=== PATIENT | male | born 1985 | race Caucasian/White ===

== ENCOUNTER 2022-07-06 08:55 | Inpatient (IN) | payer OTHER, SELFPAY ==
[2022-07-06 09:34] LABS: #Monocytes 1.3 10x3/uL (0.0-1.1); #Neutrophils 11.4 10x3/uL (1.5-8.4); %Basophils 0.3 % (0.0-2.0); %Lymphocytes 11.4 % (18.0-47.0); %Monocytes 9.1 % (0.0-10.0); %Neutrophils 78.9 % (40.0-75.0); Hemoglobin 17.8 g/dL (13.5-17.5); Mean Corpuscular HGB CONC 35.3 g/dL (32.0-36.0); Mean Corpuscular Hemoglobin 30.3 pg (27.0-33.0); Mean Corpuscular Volume 85.7 fl (81.2-95.1); Mean Platelet Volume 10.7 fl (7.4-10.4); Platelet Count 654 10x3/uL (150-450); RBC Distribution Width 14.4 % (11.5-14.5); Red Blood Cell (RBC) Count 5.88 10x6/uL (4.32-5.72); White Blood Cell (WBC) Count 14.4 10x3/uL (3.5-10.5)
[2022-07-06 09:58] LABS: ALT (SGPT) 45 U/L (8-55); AST (SGOT) 31 U/L (5-34); Albumin 5.9 g/dL (3.5-5.0); Alkaline Phosphatase 82 U/L (40-110); Anion Gap 25 mmol/L (10-20); BUN (Urea Nitrogen) 31 mg/dL (8.9-20.6); Bilirubin, Total 2.7 mg/dL (0.2-1.2); CK (CPK) 211 U/L (30-200); Calc. Creatinine Clearance 0 mL/min (70-130); Calcium 11.9 mg/dL (7.8-10.44); Carbon Dioxide 19 mmol/L (22-29); Chloride 105 mmol/L (98-107); Estimated GFR 16; Globulin 3.8 g/dL (2.4-3.5); Glucose 145 mg/dL (70-105); Potassium 4.3 mmol/L (3.5-5.1); Protein, Total 9.7 g/dL (6.0-8.3); Sodium 145 mmol/L (136-145)
[2022-07-06 09:59] LABS: Acetaminophen Less than 10.0 mcg/mL (10.0-30.0); Alcohol Less than 10 mg/dL (Less than 10); Salicylate Less than 8.0 mg/dL (15.0-30.0)
[2022-07-06] MEDS ORDERED: Lorazepam 1 MG TAB ONE (10:17)
[2022-07-06 10:33] LABS: CKMB 2.7 ng/mL (0-6.6)
[2022-07-06] MEDS ORDERED: Acetaminophen 650 MG Suppository PR PRN (12:15)
[2022-07-06] MEDS ORDERED: Acetaminophen 325 MG TAB PO PRN (12:15)
[2022-07-06] MEDS ORDERED: Ondansetron PF 4 MG/2 ML Vial IVP PRN (12:15)
[2022-07-06] MEDS ORDERED: Ondansetron ODT 4 MG TAB PO PRN (12:15)
[2022-07-06] MEDS ORDERED: Acetaminophen 500 MG TAB ONE (13:17)
[2022-07-06 14:09] LABS: CKMB 4.9 ng/mL (0-6.6)
[2022-07-06 14:55] LABS: Amphetamine Detected (NotDetected); Barbiturates Screen Not Detected (NotDetected); Benzodiazepine Screen Not Detected (NotDetected); Cocaine Metabolite Screen Not Detected (NotDetected); Methadone Not Detected (NotDetected); Methamphetamine Detected (NotDetected); Opiate Screen Not Detected (NotDetected); Oxycodone Screen Not Detected (NotDetected); Phencyclidine (PCP) Not Detected (NotDetected); THC/Cannabinoid Screen Not Detected (NotDetected); Tricyclic Screen Not Detected (NotDetected)
[2022-07-06 14:57] VITALS: BMI 30.1
[2022-07-06] MEDS: Sodium Chloride 0.9% 1,000 ML IV SCH ×2 (16:32→22:55)
[2022-07-06 16:55] LABS: CKMB 9.3 ng/mL (0-6.6)
[2022-07-06] MEDS: Nicotine 14 MG PATCH TD SCH (19:50)
[2022-07-06] MEDS: clonazePAM 1 MG TAB PO PRN (23:56)
[2022-07-07] MEDS: Sodium Chloride 0.9% 1,000 ML IV SCH ×4 (02:09→22:01)
[2022-07-07 06:32] LABS: Anion Gap 13 mmol/L (10-20); BUN (Urea Nitrogen) 32 mg/dL (8.9-20.6); Calc. Creatinine Clearance 77 mL/min (70-130); Calcium 8.9 mg/dL (7.8-10.44); Carbon Dioxide 22 mmol/L (22-29); Cardiac Risk 3.9 (Less than 4.5); Chloride 110 mmol/L (98-107); Cholesterol 174 mg/dl (< 200 Desired); Estimated GFR 48; Glucose 111 mg/dL (70-105); HDL Cholesterol 45 mg/dL (>60 Neg Risk); LDL Cholesterol, Calculated 115 mg/dL; Potassium 3.9 mmol/L (3.5-5.1); Sodium 141 mmol/L (136-145); Triglycerides 70 mg/dL (Less than 150)
[2022-07-07 06:39] LABS: #Monocytes 0.6 10x3/uL (0.0-1.1); #Neutrophils 4.6 10x3/uL (1.5-8.4); %Basophils 0.4 % (0.0-2.0); %Eosinophils 0.1 % (0.0-6.0); %Lymphocytes 27.5 % (18.0-47.0); %Monocytes 8.5 % (0.0-10.0); %Neutrophils 63.4 % (40.0-75.0); Hemoglobin 13.3 g/dL (13.5-17.5); Mean Corpuscular HGB CONC 34.4 g/dL (32.0-36.0); Mean Corpuscular Hemoglobin 30.3 pg (27.0-33.0); Mean Corpuscular Volume 88.2 fl (81.2-95.1); Mean Platelet Volume 10.8 fl (7.4-10.4); Platelet Count 352 10x3/uL (150-450); RBC Distribution Width 14.4 % (11.5-14.5); Red Blood Cell (RBC) Count 4.39 10x6/uL (4.32-5.72); White Blood Cell (WBC) Count 7.3 10x3/uL (3.5-10.5)
[2022-07-07] MEDS: Aspirin 81 mg Enteric Coated Tablet PO SCH (09:33)
[2022-07-07] MEDS: clonazePAM 1 MG TAB PO PRN ×3 (11:31→22:05)
[2022-07-07 11:53] LABS: CKMB 12.2 ng/mL (0-6.6)
[2022-07-07 15:46] LABS: CKMB 9.4 ng/mL (0-6.6)
[2022-07-07] MEDS: Nicotine 14 MG PATCH TD SCH (16:00)
[2022-07-08 05:15] LABS: Anion Gap 10 mmol/L (10-20); BUN (Urea Nitrogen) 17 mg/dL (8.9-20.6); Calc. Creatinine Clearance 163 mL/min (70-130); Calcium 8.7 mg/dL (7.8-10.44); Carbon Dioxide 24 mmol/L (22-29); Chloride 110 mmol/L (98-107); Estimated GFR 115; Glucose 91 mg/dL (70-105); Potassium 4.1 mmol/L (3.5-5.1); Sodium 140 mmol/L (136-145)
[2022-07-08 05:17] LABS: #Monocytes 0.4 10x3/uL (0.0-1.1); #Neutrophils 2.3 10x3/uL (1.5-8.4); %Basophils 0.6 % (0.0-2.0); %Eosinophils 0.8 % (0.0-6.0); %Lymphocytes 43.4 % (18.0-47.0); %Monocytes 7.5 % (0.0-10.0); %Neutrophils 47.5 % (40.0-75.0); Mean Corpuscular HGB CONC 34.1 g/dL (32.0-36.0); Mean Corpuscular Hemoglobin 30.2 pg (27.0-33.0); Mean Corpuscular Volume 88.4 fl (81.2-95.1); Mean Platelet Volume 10.8 fl (7.4-10.4); Platelet Count 293 10x3/uL (150-450); RBC Distribution Width 14.1 % (11.5-14.5); Red Blood Cell (RBC) Count 3.98 10x6/uL (4.32-5.72); White Blood Cell (WBC) Count 4.9 10x3/uL (3.5-10.5)
[2022-07-08] MEDS: Sodium Chloride 0.9% 1,000 ML IV SCH ×3 (05:21→21:36)
[2022-07-08] MEDS: clonazePAM 1 MG TAB PO PRN ×2 (09:00→20:23)
[2022-07-08] MEDS: Aspirin 81 mg Enteric Coated Tablet PO SCH (09:00)
[2022-07-08] MEDS ORDERED: traMADol HCl 50 MG TAB PO SCH (10:00)
[2022-07-08] MEDS: traMADol HCl 50 MG TAB PO PRN (17:01)
[2022-07-08] MEDS: Calcium Carbonate 500 MG ChewTAB PO PRN (17:02)
[2022-07-08] MEDS: Nicotine 14 MG PATCH TD SCH (17:56)
[2022-07-09] MEDS: Sodium Chloride 0.9% 1,000 ML IV SCH ×2 (00:30→10:55)
[2022-07-09] MEDS: Calcium Carbonate 500 MG ChewTAB PO PRN ×2 (00:39→13:50)
[2022-07-09] MEDS: clonazePAM 1 MG TAB PO PRN ×2 (02:09→11:33)
[2022-07-09 05:14] LABS: Anion Gap 13 mmol/L (10-20); BUN (Urea Nitrogen) 10 mg/dL (8.9-20.6); Calc. Creatinine Clearance 136 mL/min (70-130); Calcium 9.6 mg/dL (7.8-10.44); Carbon Dioxide 27 mmol/L (22-29); Chloride 105 mmol/L (98-107); Estimated GFR 95; Glucose 92 mg/dL (70-105); Potassium 3.8 mmol/L (3.5-5.1); Sodium 141 mmol/L (136-145)
[2022-07-09 05:17] LABS: #Monocytes 0.4 10x3/uL (0.0-1.1); %Basophils 0.5 % (0.0-2.0); %Eosinophils 0.3 % (0.0-6.0); %Lymphocytes 29.6 % (18.0-47.0); %Monocytes 6.2 % (0.0-10.0); %Neutrophils 63.1 % (40.0-75.0); Hemoglobin 14.1 g/dL (13.5-17.5); Mean Corpuscular HGB CONC 35.5 g/dL (32.0-36.0); Mean Corpuscular Hemoglobin 30.5 pg (27.0-33.0); Mean Corpuscular Volume 85.9 fl (81.2-95.1); Mean Platelet Volume 10.8 fl (7.4-10.4); Platelet Count 346 10x3/uL (150-450); RBC Distribution Width 13.5 % (11.5-14.5); Red Blood Cell (RBC) Count 4.62 10x6/uL (4.32-5.72); White Blood Cell (WBC) Count 6.3 10x3/uL (3.5-10.5)
[2022-07-09] MEDS: Aspirin 81 mg Enteric Coated Tablet PO SCH (09:34)
[2022-07-09] MEDS: traMADol HCl 50 MG TAB PO PRN (09:37)
[2022-07-09 12:30] VITALS: BP 117/57; TEMP 98
== END 2022-07-09 14:05 | disposition short-term general hospital (02) | DRG 917 ==
LOC: CSHERS 08:55 → CSHTELE 14:02
PROVIDERS: ADMIT Family Medicine; ATTEND Internal Medicine
DX: T50.992A Poisoning by other drugs, medicaments and biological substances, intentional self-harm, initial encounter (principal); I21.A1 Myocardial infarction type 2; N17.9 Acute kidney failure, unspecified; M62.82 Rhabdomyolysis; G43.909 Migraine, unspecified, not intractable, without status migrainosus; F31.9 Bipolar disorder, unspecified; F20.9 Schizophrenia, unspecified; F17.210 Nicotine dependence, cigarettes, uncomplicated; E86.0 Dehydration; F19.10 Other psychoactive substance abuse, uncomplicated; F41.9 Anxiety disorder, unspecified; Z20.822 Contact with and (suspected) exposure to COVID-19; Y92.59 Other trade areas as the place of occurrence of the external cause; Z88.8 Allergy status to other drugs, medicaments and biological substances; Z79.899 Other long term (current) drug therapy
CPT/HCPCS: 36415; 70450; 71045; 80048; 80053; 80061; 80306; 80307; 82550; 82553; 84443; 84484; 85025; 93005; 93010; 94760; 96360; 96361; J7050; U0003; U0005